=== PATIENT | male | born 1980 | race Caucasian/White ===

== ENCOUNTER 2020-05-12 11:05 | Emergency (ER) | payer OTHER ==
[2020-05-12 12:28] LABS: Absolute Lymphocytes (CBC) 0.6 K/uL (0.7-4.9); Basophils % 0.4 % (0-1.3); Hematocrit 44.3 % (39.6-49.0); Lymphocytes % 9.6 % (15.3-44.8); MPV 7.9 fL (7.6-11.3); RBC Red Blood Cell Count 4.98 M/uL (4.33-5.43)
[2020-05-12 12:38] LABS: Protime INR 1.1
[2020-05-12 13:01] LABS: ALT/SGPT 26 U/L (12-78); AST/SGOT 22 U/L (15-37); Albumin 3.3 g/dL (3.4-5.0); Alkaline Phosphatase 35 U/L (45-117); BUN Blood Urea Nitrogen 18 mg/dL (7-18); Bicarbonate 27 mmol/L (21-32); Bilirubin Direct 0.2 mg/dL (0-0.2); Bilirubin Total 0.6 mg/dL (0.2-1.0); Glucose Level 101 mg/dL (74-106); Lipase 81 U/L (73-393); Protein, Total 7.3 g/dL (6.4-8.2); Sodium Level 141 mmol/L (136-145); Troponin (Emerg Dept Use Only) < 0.02 ng/mL (0.0-0.045)
--- NOTE | 2020-05-12 13:02 | RAD REPORT ---
EXAM DESCRIPTION: RAD - Chest Single View - 05/12/2020 12:44 pm CLINICAL HISTORY: Possible COVID COMPARISON: None TECHNIQUE: AP portable chest image was obtained 05/12/2020 12:44 pm . FINDINGS: Lung volumes are low. Patchy airspace opacification is present throughout the lung daniels, worse on the left. This airspace opacification is consistent with the history of positive COVID test and COVID-19 pneumonia. Trachea is midline. Heart and vasculature are normal. No measurable pleural effusion and no pneumotho rax. No acute bony abnormality seen. No acute aortic findings suspected. IMPRESSION: Bilateral lung parenchymal airspace opacification consistent with a viral pneumonia. Giv en the positive COVID-19 test, this is most likely a COVID-19 pneumonia.
[2020-05-12] MEDS ORDERED: LEVALBUTEROL 1.25 MG/3 ML NEB ONE (13:14)
[2020-05-12] MEDS ORDERED: dexAMETHasone 10 MG/ML VIAL ONE (13:14)
[2020-05-12] MEDS ORDERED: NA CHLORIDE 0.9% 500 ML ONE (13:55)
--- NOTE | 2020-05-12 14:36 | EDPHYS ---
Physician Documentation [facility] Name: Shaun Storey Age: 39 yrs Sex: Male : 1980 Arrival Date: 05/12/2020 Time: 11:08 Bed 26 Private MD: ED Physician Jv Beyer HPI: 05/12 16:05 This 39 yrs old Male presents to ER via Ambulatory with complaints of COVID+, kdr Shortness Of Breath, Abdominal Pain. 16:05 The patient has shortness of breath at rest, with light activity. Onset: The kdr symptoms/episode began/occurred gradually, 11 day(s) ago. Duration: The symptoms are continuous, and are steadily getting worse. The patient's shortness of breath is aggravated by coughing, exertion, light activity, walking, is alleviated by nothing. Associated signs and symptoms: Pertinent positives: non-productive cough, Abdominal pain, Pertinent negatives: diaphoresis, dizziness, hemoptysis, loss of consciousness, numbness in extremities, visual changes, vomiting. Severity of symptoms: At their worst the symptoms were mild moderate just prior to arrival, in the emergency department the symptoms have improved mildly. The patient has experienced a previous episode. The patient has been recently seen by a physician: Seen on for SOB and noted to be positive for covid but have had difficulty . Historical: - Allergies: 11:33 No Known Allergies; em - PMHx: 11:33 None; em - PSHx: 11:33 None; em - Immunization history:: Adult Immunizations up to date. - Social history:: Smoking status: unknown. ROS: 18:31 Constitutional: Negative for weight loss the patinet has had fever and chills Eyes: kdr Negative for injury, pain, redness, and discharge, ENT: Negative for injury, pain, and discharge, Neck: Negative for injury, pain, and swelling, Cardiovascular: Negative for chest pain, palpitations, and edema, Abdomen/GI: Negative for abdominal pain, nausea, vomiting, diarrhea, and constipation, Back: Negative for injury and pain, : Negative for injury, bleeding, discharge, and swelling, MS/Extremity: Negative for injury and deformity, Skin: Negative for injury, rash, and discoloration, Neuro: Negative for headache, weakness, numbness, tingling, and seizure activity. Psych: Negative for depression, anxiety, suicide ideation, homicidal ideation, and hallucinations, Allergy/Immunology: Negative for hives, rash, and allergies. 18:31 Respiratory: Positive for cough, with no reported sputum, dyspnea on exertion, shortness of breath, wheezing, Negative for hemoptysis, orthopnea, pleurisy, wheezing. Exam: 16:04 ECG was reviewed by the Attending Physician. kdr 18:31 Constitutional: This is a well developed, well nourished patient who is awake, alert, kdr and in no acute distress. Head/Face: Normocephalic, atraumatic. Eyes: Pupils equal round and reactive to light, extra-ocular motions intact. Lids and lashes normal. Conjunctiva and sclera are non-icteric and not injected. Cornea within normal limits. Periorbital areas with no swelling, redness, or edema. Neck: Trachea midline, no thyromegaly or masses palpated, and no cervical lymphadenopathy. Supple, full range of motion without nuchal rigidity, or vertebral point tenderness. No Meningismus. Chest/axilla: Normal chest wall appearance and motion. Nontender with no deformity. No lesions are appreciated. Cardiovascular: Regular rate and rhythm with a normal S1 and S2. No gallops, murmurs, or rubs. Normal PMI, no JVD. No pulse deficits. Respiratory: Lungs have equal breath sounds bilaterally, clear to auscultation and percussion. No rales, rhonchi or wheezes noted. No increased work of breathing, no retractions or nasal flaring. Abdomen/GI: Soft, non-tender, with normal bowel sounds. No distension or tympany. No guarding or rebound. No evidence of tenderness throughout. Back: No spinal tenderness. No costovertebral tenderness. Full range of motion. Skin: Warm, dry with normal turgor. Normal color with no rashes, no lesions, and no evidence of cellulitis. MS/ Extremity: Pulses equal, no cyanosis. Neurovascular intact. Full, normal range of motion. Neuro: Awake and alert, GCS 15, oriented to person, place, time, and situation. Cranial nerves II-XII grossly intact. Motor strength 5/5 in all extremities. Sensory grossly intact. Cerebellar exam normal. Normal gait. Psych: Awake, alert, with orientation to person, place and time. Behavior, mood, and affect are within normal limits. Vital Signs: 11:28 BP 133 / 85; Pulse 97; Resp 20; Temp 98.2; Pulse Ox 96% on R/A; Weight 90.72 kg; Height em 6 ft. 0 in. (182.88 cm); 12:44 BP 113 / 91; Pulse 88; Resp 17 S; Pulse Ox 97% on R/A; jd3 13:50 BP 140 / 88; Pulse 128; Resp 25 S; Pulse Ox 99% on R/A; jd3 13:59 Pulse 112; Resp 20 S; Pulse Ox 98% on R/A; jd3 14:33 BP 138 / 76; Pulse 106; Resp 20 S; Pulse Ox 96% on R/A; jd3 15:23 BP 131 / 80; Pulse 107; Resp 20 S; Temp 99.1(O); Pulse Ox 100% on R/A; jd3 16:35 BP 131 / 88; Pulse 99; Resp 19 S; Pulse Ox 97% on R/A; jd3 17:00 BP 141 / 79; Pulse 99; Resp 20 S; Temp 99.0(O); Pulse Ox 95% on R/A; jd3 11:28 Body Mass Index 27.12 (90.72 kg, 182.88 cm) em MDM: 14:35 Patient medically screened. kdr 18:31 Data reviewed: vital signs, nurses notes, lab test result(s), radiologic studies. kdr Counseling: I had a detailed discussion with the patient and/or guardian regarding: the historical points, exam findings, and any diagnostic results supporting the discharge/admit diagnosis, lab results, radiology results, the need for outpatient follow up. ED course: The patient felt muc better with the interventions given. He was happy with the results and the plan for discharge and follow-up. 05/12 11:37 Order name: Blood Culture Adult (2) kdr 05/12 11:37 Order name: BMP kdr 05/12 11:37 Order name: C-Reactive Protein kdr 05/12 11:37 Order name: CBC with Diff kdr 05/12 11:37 Order name: COVID-19 kdr 05/12 11:37 Order name: D-Dimer; Complete Time: 12:56 kdr 05/12 11:37 Order name: Ferritin; Complete Time: 13:39 kdr 05/12 11:37 Order name: Flu; Complete Time: 14:29 [facility] 05/12 11:37 Order name: Lactate; Complete Time: 12:56 [facility] 05/12 11:37 Order name: LFT's; Complete Time: 13:39 [facility] 05/12 11:37 Order name: Lipase; Complete Time: 13:39 [facility] 05/12 11:37 Order name: Procalcitonin; Complete Time: 13:39 [facility] 05/12 11:37 Order name: PT-INR; Complete Time: 12:56 [facility] 05/12 11:37 Order name: Ptt, Activated; Complete Time: 12:56 [facility] 05/12 11:37 Order name: Strep; Complete Time: 14:29 [facility] 05/12 11:37 Order name: Troponin (emerg Dept Use Only); Complete Time: 13:39 [facility] 05/12 11:37 Order name: Urine Microscopic Only; Complete Time: 16:04 [facility] 05/12 11:37 Order name: CXR XRAY; Complete Time: 13:39 [facility] 05/12 11:37 Order name: Blood Culture [facility] 05/12 11:37 Order name: Basic Metabolic Panel; Complete Time: 13:39 [facility] 05/12 11:37 Order name: C-Reactive Protein; Complete Time: 13:39 [facility] 05/12 11:37 Order name: CBC with Automated Diff; Complete Time: 12:56 [facility] 05/12 13:41 Order name: Throat Culture [facility] 05/12 14:33 Order name: CT Chest For PE Angio; Complete Time: 16:21 [facility] 05/12 15:22 Order name: Urine Dipstick--Ancillary (enter results); Complete Time: 15:35 em 05/12 11:37 Order name: EKG; Complete Time: 11:38 [facility] 05/12 11:37 Order name: Cardiac monitoring; Complete Time: 12:47 [facility] 05/12 11:37 Order name: Document PUI#; Complete Time: 11:59 kdr 05/12 11:37 Order name: Droplet/Contact Precautions; Complete Time: 11:59 [facility] 05/12 11:37 Order name: EKG - Nurse/Tech; Complete Time: 12:46 kdr 05/12 11:37 Order name: IV Start; Complete Time: 12:46 kdr 05/12 11:37 Order name: Labs collected and sent; Complete Time: 12:46 kdr 05/12 11:37 Order name: Notify Health Dept [phone]/ ; Complete Time: 11:59 kdr 05/12 11:37 Order name: O2 Per Protocol; Complete Time: 11:59 kdr 05/12 11:37 Order name: O2 Sat Monitoring; Complete Time: 11:59 kdr 05/12 11:37 Order name: Urine Dipstick-Ancillary (obtain specimen); Complete Time: 15:20 kdr EC:04 Rate is 94 beats/min. Rhythm is regular, Normal Sinus Rhythm with No ectopy. QRS Rhodelia kdr is Normal. [place] interval is normal. QRS interval is normal. QT interval is normal. Clinical impression: Normal ECG. Administered Medications: 13:07 Drug: Xopenex (3) 1.25 mg Route: Inhalation; jd3 13:48 Follow up: Response: Adverse reaction, Physician notified jd3 13:08 Drug: Decadron - Dexamethasone 6 mg Route: IVP; Site: right antecubital; jd3 14:00 Follow up: Response: No adverse reaction jd3 13:48 Drug: NS 0.9% 500 ml Route: IV; Rate: bolus; Site: right antecubital; jd3 14:40 Follow up: Response: No adverse reaction; IV Status: Completed infusion; IV Intake: jd3 500ml 14:49 Drug: Lovenox 1 mg/kg Route: Sub-Q; Site: abdomen; jd3 15:40 Follow up: Response: No adverse reaction jd3 14:49 Drug: SOLU-Medrol 80 mg Route: IVP; Site: right antecubital; jd3 15:40 Follow up: Response: No adverse reaction jd3 15:15 Drug: Tylenol 1000 mg Route: PO; jd3 16:15 Follow up: Response: No adverse reaction jd3 Disposition: 05/12/20 16:52 Discharged to Home. Impression: COVID Pneumonia. - Condition is Stable. - Discharge Instructions: Shortness of Breath, [id number], COVID-19. - Prescriptions for prednisone 10 mg Oral tablet - take 1 tablet by ORAL route 2 times per day Use this prescription second; 6 tablet. prednisone 10 mg Oral tablet - take 2 tablet by ORAL route 2 times per day Use this prescription first; 12 tablet. Albuterol Sulfate 90 mcg/actuation - inhale 1-2 puff by INHALATION route every 4-6 hours; 1 Inhaler. - Medication Reconciliation Form, Thank You Letter form. - Follow up: Private Physician; When: 2 - 3 days; Reason: If symptoms return, Further diagnostic work-up, Recheck today's complaints, Continuance of care, Re-evaluation by your physician. - Problem is an acute exacerbation. - Symptoms have improved. Signatures: Dispatcher [employer] [facility] Jv Beyer MD MD [facility] Efren Campa RN RN Crystal Boyd RN RN iw Vijay Stock, HEARING IMPAIRED TEACHER-C HEARING IMPAIRED TEACHER-Cla1 Norman Shukla RN RN jd3 Corrections: (The following items were deleted from the chart) 12:38 11:37 CORONAVIRUS ordered. [facility] 12:47 11:[address] [facility] jd3 16:24 14:35 Hospitalization Ordered by Hosea Fuentes MD for Observation. Preliminary diagnosis is Shortness of breath; Pneumonia, unspecified organism; Viral infection, unspecified. Bed requested for Telemetry/MedSurg (observation). Status is Observation. Condition is Fair. Problem is an acute exacerbation. Symptoms have improved. [facility] 16:24 16:24 05/12/2020 14:35 Hospitalization Ordered by Hosea Fuentes MD for Observation. Preliminary diagnosis is Shortness of breath; Pneumonia, unspecified organism; Viral infection, unspecified. Bed requested for [facility] ER HOLD. Status is Observation. Condition is Fair. Problem is an acute exacerbation. Symptoms have improved. 16:39 16:24 05/12/2020 14:35 Hospitalization Ordered by Hosea Fuentes MD for Observation. Preliminary diagnosis is Shortness of breath; Pneumonia, unspecified organism; Viral infection, unspecified. Bed requested for [facility] ER HOLD. Status is Observation. Condition is Fair. Problem is an acute exacerbation. Symptoms have improved. 16:51 16:39 05/12/2020 14:35 Hospitalization Ordered by Hosea Fuentes MD for Observation. kdr Preliminary diagnosis is Shortness of breath; Pneumonia, unspecified organism; Viral infection, unspecified. Bed requested for Telemetry/MedSurg (observation). Status is Observation. Condition is Fair. Problem is an acute exacerbation. Symptoms have improved. 17:14 16:52 05/12/2020 16:52 Discharged to Home. Impression: COVID Pneumonia. Condition is jd3 Stable. Forms are Medication Reconciliation Form, Thank You Letter, Antibiotic Education, Prescription Opioid Use. Follow up: Private Physician; When: 2 - 3 days; Reason: If symptoms return, Further diagnostic work-up, Recheck today's complaints, Continuance of care, Re-evaluation by your physician. Problem is an acute exacerbation. Symptoms have improved. kdr
--- NOTE | 2020-05-12 14:36 | ER ---
Nurse's Notes [facility] Name: Shaun Storey Age: 39 yrs Sex: Male : 1980 Arrival Date: 05/12/2020 Time: 11:08 Bed 26 Private MD: Diagnosis: COVID Pneumonia Presentation: 05/12 11:28 Chief complaint: Patient states: has been SOB N/V/D since testing pos. May. 1 for em covid. states SPO2 was 89% this morning while laying in prone position. Coronavirus screen: Client presents with at least one sign or symptom that may indicate coronavirus-19. Standard/surgical mask placed on the client. Provider contacted for isolation considerations. Client reports previous positive COVID test result. Date of collection: May 02, 2020. Ebola Screen: Patient negative for fever greater than or equal to 101.5 degrees Fahrenheit, and additional compatible Ebola Virus Disease symptoms Patient denies exposure to infectious person. Patient denies travel to an Ebola-affected area in the 21 days before illness onset. No symptoms or risks identified at this time. Initial Sepsis Screen: Does the patient meet any 2 criteria? HR > 90 bpm. No. Patient's initial sepsis screen is negative. Does the patient have a suspected source of infection? No. Patient's initial sepsis screen is negative. Risk Assessment: Do you want to hurt yourself or someone else? Patient reports no desire to harm self or others. Onset of symptoms Onset of symptoms was May 02, 2020. 11:28 Method Of Arrival: Ambulatory em 11:28 Acuity: TIM 3 em Triage Assessment: 12:44 Respiratory: Onset: The symptoms/episode began/occurred gradually, the patient has mild jd3 shortness of breath. Historical: - Allergies: 11:33 No Known Allergies; em - PMHx: 11:33 None; em - PSHx: 11:33 None; em - Immunization history:: Adult Immunizations up to date. - Social history:: Smoking status: unknown. Screenin:34 Abuse screen: Denies threats or abuse. Nutritional screening: No deficits noted. em Tuberculosis screening: No symptoms or risk factors identified. Fall Risk None identified. Assessment: 12:42 General: Appears in no apparent distress. uncomfortable, Behavior is calm, cooperative, jd3 appropriate for age. Pain: Complains of pain in head Quality of pain is described as aching. Neuro: Level of Consciousness is awake, alert, obeys commands, Oriented to person, place, time, situation. Cardiovascular: Denies chest pain, Capillary refill < 3 seconds Patient's skin is warm and dry. Rhythm is regular. Respiratory: Reports shortness of breath with coughing cough that is persistent Airway is patent Respiratory effort is even, unlabored, Respiratory pattern is regular, symmetrical. GI: Abdomen is round non-distended, Reports diarrhea, Patient currently denies abdominal pain, intolerance of fluids, intolerance of food. : No signs and/or symptoms were reported regarding the genitourinary system. EENT: No signs and/or symptoms were reported regarding the EENT system. Derm: Skin is intact, Skin is diaphoretic, Skin is normal, Skin temperature is warm. Musculoskeletal: Circulation, motion, and sensation intact. Range of motion: intact in all extremities. 13:40 Reassessment: Patient and/or family updated on plan of care and expected duration. Pain jd3 level reassessed. pt with sudden tachycardia and feeling shaky, pt reporting worsening of shortness of breath. provider notified. medication order received. 13:59 Reassessment: Patient and/or family updated on plan of care and expected duration. Pain jd3 level reassessed. Patient is alert, oriented x 3, equal unlabored respirations, skin warm/dry/pink. Patient states feeling better. 14:33 Reassessment: No changes from previously documented assessment. Patient and/or family jd3 updated on plan of care and expected duration. Pain level reassessed. Patient is alert, oriented x 3, equal unlabored respirations, skin warm/dry/pink. 15:23 Reassessment: Patient and/or family updated on plan of care and expected duration. Pain jd3 level reassessed. Patient is alert, oriented x 3, equal unlabored respirations, skin warm/dry/pink. pt medicated for raise in temperature. 16:34 Reassessment: Patient and/or family updated on plan of care and expected duration. Pain jd3 level reassessed. Patient is alert, oriented x 3, equal unlabored respirations, skin warm/dry/pink. Vital Signs: 11:28 BP 133 / 85; Pulse 97; Resp 20; Temp 98.2; Pulse Ox 96% on R/A; Weight 90.72 kg; Height em 6 ft. 0 in. (182.88 cm); 12:44 BP 113 / 91; Pulse 88; Resp 17 S; Pulse Ox 97% on R/A; jd3 13:50 BP 140 / 88; Pulse 128; Resp 25 S; Pulse Ox 99% on R/A; jd3 13:59 Pulse 112; Resp 20 S; Pulse Ox 98% on R/A; jd3 14:33 BP 138 / 76; Pulse 106; Resp 20 S; Pulse Ox 96% on R/A; jd3 15:23 BP 131 / 80; Pulse 107; Resp 20 S; Temp 99.1(O); Pulse Ox 100% on R/A; jd3 16:35 BP 131 / 88; Pulse 99; Resp 19 S; Pulse Ox 97% on R/A; jd3 17:00 BP 141 / 79; Pulse 99; Resp 20 S; Temp 99.0(O); Pulse Ox 95% on R/A; jd3 11:28 Body Mass Index 27.12 (90.72 kg, 182.88 cm) em ED Course: 11:08 Patient arrived in ED. ag5 11:33 Triage completed. em 11:33 Arm band placed on. em 11:34 Patient has correct armband on for positive identification. Call light in reach. Side em rails up X2. Adult w/ patient. Pulse ox on. NIBP on. 11:35 Jv Beyer MD is Attending Physician. kdr 11:52 Norman Shukla, LIDIA is Primary Nurse. jd3 12:41 Initial lab(s) drawn, by sd, sent to lab. First set of blood cultures drawn by me, EKG jd3 done, by ED staff, reviewed by Jv Beyer MD COVID swab sent to lab. Flu and/or RSV swab sent to lab. Strep swab sent to lab. Inserted saline lock: 20 gauge in right antecubital area, using aseptic technique. Blood collected. 12:44 CXR XRAY In Process Unspecified. EDMS 14:34 Hosea Fuentes MD is Hospitalizing Provider. kdr 15:40 CT Chest For PE Angio In Process Unspecified. EDMS 17:11 No provider procedures requiring assistance completed. IV discontinued, intact, jd3 bleeding controlled, No redness/swelling at site. Pressure dressing applied. Administered Medications: 13:07 Drug: Xopenex (3) 1.25 mg Route: Inhalation; jd3 13:48 Follow up: Response: Adverse reaction, Physician notified jd3 13:08 Drug: Decadron - Dexamethasone 6 mg Route: IVP; Site: right antecubital; jd3 14:00 Follow up: Response: No adverse reaction jd3 13:48 Drug: NS 0.9% 500 ml Route: IV; Rate: bolus; Site: right antecubital; jd3 14:40 Follow up: Response: No adverse reaction; IV Status: Completed infusion; IV Intake: jd3 500ml 14:49 Drug: Lovenox 1 mg/kg Route: Sub-Q; Site: abdomen; jd3 15:40 Follow up: Response: No adverse reaction jd3 14:49 Drug: SOLU-Medrol 80 mg Route: IVP; Site: right antecubital; jd3 15:40 Follow up: Response: No adverse reaction jd3 15:15 Drug: Tylenol 1000 mg Route: PO; jd3 16:15 Follow up: Response: No adverse reaction jd3 Intake: 14:40 IV: 500ml; Total: 500ml. jd3 Outcome: 14:35 Decision to Hospitalize by Provider. kdr 16:52 Discharge ordered by MD. kdr 17:12 Discharged to home ambulatory, with family. jd3 17:12 Condition: stable 17:12 Discharge instructions given to patient, family, Instructed on discharge instructions, follow up and referral plans. medication usage, Demonstrated understanding of instructions, follow-up care, medications, Prescriptions given X 3. 17:14 Patient left the ED. jd3 Signatures: Dispatcher [employer] [facility] Jv Beyer MD MD kdr Munoz, Edgar, RN RN Norman Das RN RN jd3 Clifton Avila ag5 Corrections: (The following items were deleted from the chart) 13:59 13:40 Reassessment: Patient and/or family updated on plan of care and expected jd3 duration. Pain level reassessed. pt with sudden tachycardia and feeling shaky, pt reporting worsening of shortness of breath. provider notified. medication order received. jd3
[2020-05-12] MEDS ORDERED: METHYLPREDNISOLONE 125 MG INJ ONE ×2 (14:51→14:52)
[2020-05-12] MEDS ORDERED: ENOXAPARIN 100 MG/ML SYR SQ ONE (14:51)
[2020-05-12 15:25] LABS: Urine Blood NEGATIVE (NEG); Urine Glucose NEGATIVE (NEG); Urine Protein NEGATIVE (NEG); Urine Specific Gravity 1.015 (1.005-1.030)
[2020-05-12] MEDS ORDERED: ACETAMINOPHEN 500 MG TAB ONE (15:27)
[2020-05-12 15:44] LABS: Urine Bacteria <20 /HPF (NONE SEEN); Urine Mucus 1+ /HPF (NONE SEEN); Urine RBC <5 /HPF (NONE SEEN)
--- NOTE | 2020-05-12 16:06 | RAD REPORT ---
EXAM DESCRIPTION: CT - Chest For Pe Angio - 05/12/2020 3:39 pm CLINICAL HISTORY: PALPITATIONS , shortness of breath, vomiting and diarrhea, COVID positive COMPARISON: Chest Single View dated 05/12/2020 TECHNIQUE: Dynamically enhanced 3 mm thick images of the chest were obtained during administration o f approximately 150mL Isovue 370 IV contrast. Coronal and oblique MIP reconstruction images were gene rated and reviewed. Exam utilizes a protocol to evaluate the pulmonary arterial tree. All CT scans are performed using dose optimization technique as appropriate and may include automated exposure control or mA/KV adjustment according to patient size. FINDINGS: No pulmonary emboli are identified. The aorta as imaged shows no acute or suspicious finding. No pericardial thickening or effusion. Bilateral ground-glass opacities are present in the lung daniels primarily in a peripheral sub pleural distribution. Airspace opacification is consolidated in the posterior lower right lung field. Given the provided history, COVID-19 pneumonia is the most likely etiology for this pattern. No pleural eff usion or pleural thickening. No suspicious mass. No endobronchial lesion. No mediastinal or hilar suspicious masses. No chest wall masses or abnormal axillary lymphadenopathy. IMPRESSION: No pulmonary emboli identified. COVID-19 pneumonia pattern scattered throughout the lung daniels.
[2020-05-17 06:37] VITALS: BP 141/79; TEMP 99; O2SAT 95
== END 2020-05-12 17:14 | disposition home or self-care (01) ==
LOC: ER 11:05
DX: U07.1 COVID-19 (principal); J12.89 Other viral pneumonia
CPT/HCPCS: 96361; 93005; 87040 ×2; 87070; 85025; 80048; 36415; 85610; 85379; 80076; 87081; 83605; 85730; 84484; 82728; 83690; 84145; 86140; 87804 ×2; 71275; 71045; 96375; 96372; 96374; 99285; Q9967; J1100; J1650; J7040; J2930; 81003; 81015